=== PATIENT | male | born 1935 | race Caucasian/White ===

== ENCOUNTER → 2018-12-19 | Outpatient (CLI) | payer MEDICARE, BC ==
--- NOTE | 2018-12-19 16:04 | PCVCIMAG ---
EXAM: BILATERAL SUPERFICIAL VENOUS DUPLEX INDICATION: Leg pain and swelling. FINDINGS: Right leg: No thrombus in the common femoral, main femoral, or popliteal veins. These veins are compressible. Right Great Saphenous Vein: At the saphenofemoral junction the diameter is 10.7 mm, in the mid thigh it is 6.4 mm, and in the calf it is 6.0 mm. There is not significant venous insufficiency/reflux throughout. Venous insufficiency/reflux duration is 0.4 seconds. Right Small Saphenous Vein: At the saphenopopliteal junction the diameter is 5.6 mm, and in the calf it is 5.7 mm. There is significant venous insufficiency/reflux throughout. Venous insufficiency/reflux duration is 0.7 seconds. There is a cranial extension present. Left leg: No thrombus in the common femoral, main femoral, or popliteal veins. These veins are compressible. Left Great Saphenous Vein: At the saphenofemoral junction the diameter is 12.6 mm, in the mid thigh it is 5.5 mm, and in the calf it is 8.7 mm. There is not significant venous insufficiency/reflux throughout. Venous insufficiency/reflux duration is 0 seconds. Left Small Saphenous Vein: At the saphenopopliteal junction the diameter is 7.7 mm, and in the calf it is 6.8 mm. There is significant venous insufficiency/reflux throughout. Venous insufficiency/reflux duration is 1.8 seconds. There is no a cranial extension present. IMPRESSION: Right Great Saphenous Vein: No significant venous insufficiency/reflux is present as noted above. Right Small Saphenous Vein: Significant venous insufficiency/reflux is present as noted above. Left Great Saphenous Vein: Of significant venous insufficiency/reflux is present as noted above. Left Small Saphenous Vein: Significant venous insufficiency/reflux is present as noted above. Incidental note is made of significant venous insufficiency/reflux in the right popliteal vein and in the left Main femoral and left popliteal vein with reflux duration up to 2.9 seconds. LOC:[id number]
== END | disposition home or self-care (01) ==
LOC: PCVCIMAG 14:17
PROVIDERS: ATTEND Emergency Medicine
DX: M79.604 Pain in right leg (principal); M79.605 Pain in left leg; M79.89 Other specified soft tissue disorders; I87.2 Venous insufficiency (chronic) (peripheral); M79.669 Pain in unspecified lower leg
CPT/HCPCS: 93970